=== PATIENT | female | born 1995 | race Caucasian/White ===

== ENCOUNTER 2021-10-05 09:29 | Outpatient (CLI) | payer BC, SELFPAY ==
--- NOTE | ~2021-10-05 | US_ITS ---
US breast RT complete DATE: 10/05/2021 10:01 INDICATION: Right breast pain, nipple area, for several months TECHNIQUE: Complete right breast ultrasound including all 4 quadrants and subareolar area COMPARISON: None FINDINGS: No suspicious mass, architectural distortion, cyst or other significant sonographic finding is noted. IMPRESSION: BI-RADS Category 1: Negative Recommendation: Routine mammographic screening beginning at age 40 Reviewed, dictated and finalized at [facility]. Reviewed, dictated and finalized at [facility].
== END 2021-10-05 09:30 ==
PROVIDERS: Visit Provider Advanced Practice Midwife
DX: R92.8 Other abnormal and inconclusive findings on diagnostic imaging of breast (principal); N64.4 Mastodynia
CPT/HCPCS: 76641